=== PATIENT | male | born 1985 | race Hispanic/Latino ===

== ENCOUNTER 2023-02-27 18:25 | Emergency (ER) | payer OTHER, SELFPAY ==
[2023-02-27] MEDS ORDERED: Ketorolac Tromethamine 30 MG/ML VIAL ONE (19:32)
== END 2023-02-27 20:41 | disposition home or self-care (01) ==
LOC: ERS 18:25
DX: M25.512 Pain in left shoulder (principal); M25.531 Pain in right wrist; V43.52XA Car driver injured in collision with other type car in traffic accident, initial encounter
CPT/HCPCS: 96372; J1885